=== PATIENT | female | born 1995 | race Two or more races ===

== ENCOUNTER 2019-11-25 14:12 | Emergency (ER) | payer OTHER ==
[~2019-11-25] VITALS: Ht 170.2 cm; Wt 63.5 kg
== END 2019-11-25 18:50 | disposition home or self-care (01) ==
LOC: ER 14:12
DX: S81.021A Laceration with foreign body, right knee, initial encounter (principal); W18.39XA Other fall on same level, initial encounter; Y93.79 Activity, other specified sports and athletics; Y92.832 Beach as the place of occurrence of the external cause; Y99.8 Other external cause status

== ENCOUNTER 2019-12-09 11:24 | Emergency (ER) | payer OTHER ==
[~2019-12-09] VITALS: Ht 170.2 cm; Wt 63.5 kg
== END 2019-12-09 13:53 | disposition home or self-care (01) ==
LOC: ER 11:24
DX: M25.561 Pain in right knee (principal); G89.11 Acute pain due to trauma; Z48.02 Encounter for removal of sutures